=== PATIENT | female | born 1980 | race Caucasian/White ===

== ENCOUNTER 2017-10-06 08:53 | Observation (INO) | payer OTHER ==
[~2017-10-06] VITALS: Ht 165.1 cm; Wt 95.3 kg
--- NOTE | 2017-10-06 09:25 | NUR ---
PT [facility] FROM [facility], REPORT RECIEVED FROM RN ADAM, PT AAOX4, RESP EVEN UNLABORED, SKIN WARM DRY COLOR WNL, VITALS STABLE, PT WITH MOD AMT OF VAG BLEED WITH SMALL CLOTS, PAD CHANGED, PT ARRIVED WITH BLOOD TRANSFUSION IN PROGRESS, PER REPORT, THIS IS THE SECOND UNIT STARTED AT 0845, TRASFUSION TO RIGHT AC 18G, SITE WNL, NO S/S OF TRANSFUSION REACTION NOTED, SECOND IV 20G AT RIGHT WRIST, NS INFUSIN, PT C/O TENDERNESS AT THE SITE, NO SWELLING FLUSHES WELL, ADMITTING NOTIFIED, AND OR NOTIFIED OF PT'S ARRIVAL.
[2017-10-06 09:35] VITALS: BP 100/54
[2017-10-06 09:50] VITALS: BP 112/59
--- NOTE | 2017-10-06 09:55 | NUR ---
BLOOD TRANSFUSION FINISHED, PT SHOWS NO S/S OF REACTION, PT AWAKE ALERT, MOD VAGINAL BLEED WTIH SMALL CLOTS, [employer] AND UN[employer]OVAN LOW[employer] AND NIES HERE TO TAKE PT, WILL CONTINUE TO MONITOR.
[2017-10-06] MEDS ORDERED: OXYTOCIN 10 UNITS/ML VIAL ONE (10:00)
[2017-10-06] MEDS ORDERED: PROPOFOL 200 MG/20 ML VIAL IV ONE (10:00)
[2017-10-06] MEDS ORDERED: fentaNYL 0.05 MG/ML VIAL ONE (10:12)
[2017-10-06] MEDS ORDERED: MIDAZOLAM 2 MG/2 ML VIAL ONE (10:12)
[2017-10-06] MEDS ORDERED: MORPHINE SULFATE 4 MG/ML SYR IM/IVP PRN (10:15)
[2017-10-06] MEDS ORDERED: IBUPROFEN 800 MG TAB PO PRN (10:15)
[2017-10-06] MEDS ORDERED: OXYTOCIN 20 UNITS in LACTATED RINGERS 1,000 ML IV SCH (10:41)
[2017-10-06] MEDS ORDERED: MEPERIDINE 25 MG/ML SYR IVP PRN (10:45)
[2017-10-06] MEDS ORDERED: diphenhydrAMINE 50 MG/ML VIAL IVP PRN (10:45)
[2017-10-06] MEDS ORDERED: ONDANSETRON 4 MG/2 ML VIAL IVP PRN (10:45)
[2017-10-06] MEDS: ACETAMINOPHEN/CODEINE 300/30MG 1 TAB PO PRN ×2 (12:53→13:45)
--- NOTE | 2017-10-06 13:02 | NUR ---
PT SITTING UP DRINKING JUICE, PT AWAKE ALERT C/O CRAMPING PAIN 09/22, T#3 GIVEN, VAGINAL BLEED MINIMAL, WILL CONTINUE TO MONITOR.
--- NOTE | 2017-10-06 14:00 | NUR ---
PT AWAKE ALERT, RESP EVEN UNLABORED,SKIN WARM DRY COLOR WNL, MINIMAL VAGINAL BLEEDING, LURDES PO CLEARS AND CRACKERS WITHOUT N/V, PT STATES PAIN CONTROLLED AFTER T#3, PT UP OUF OF BED WITHOUT ASSIT, AMBULATES WITH STAEDY GAIT TO BATHROOM, VOIDED WITHOUT PROBLEM, PT INSTRUCTED TO FOLLOW UP WITH DR Ananya SHETTY WITHIN 1 WEEK OR SOONER TO ER IF VAG BLEED >2PADS/HR, UNCONTROLLED PAIN, N/V UNABLE TO LURDSE PO, SOB, CHEST PAIN, SYNCOPE OR OTHER CONCERNS, PT VERBALIZED FULL UNDERSTANDING.
--- NOTE | 2017-10-06 14:20 | NUR ---
IV DC'D, X2, CATH TIPS INTACT, BLEEDING CONTROLLED, PT UP OUT OF BED WITHOUT PROBLEM, CHANGED HER OWN CLOTHING, ESCORTED OUT TO FRONT LOBBY IN WHEELCHAIR. PT 'S FAMILY HERE TO PICK HER UP.
== END 2017-10-06 14:20 | disposition home or self-care (01) ==
LOC: MTU 09:10
PROVIDERS: ADMIT Obstetrics & Gynecology; ATTEND Obstetrics & Gynecology
DX: O03.4 Incomplete spontaneous abortion without complication (principal)
CPT/HCPCS: 59812; G0378; J2250; J2590; J2704; J3010; J7120

== ENCOUNTER 2018-09-13 05:33 | Emergency (ER) | payer OTHER ==
[2018-09-13] MEDS ORDERED: MORPHINE SULFATE 4 MG/ML SYR ONE ×2 (06:30→07:02)
== END 2018-09-13 07:11 | disposition home or self-care (01) ==
LOC: MED 05:33
DX: M54.5 Low back pain (principal); Z79.899 Other long term (current) drug therapy
CPT/HCPCS: 99283; J2270